=== PATIENT | female | born 1945 | race Hispanic/Latino ===

== ENCOUNTER → 2018-10-10 | Outpatient (CLI) | payer MEDICARE ==
[~2018-10-10] MED LIST: AMLO10TA7 PO; ASPI-1197 PO; ATOR40TA71 PO; CARV25TA PO; CLOP75TA32 PO; LISI10TA7 PO; MELO-108 PO; TRAM50TA4 PO
== END | disposition home or self-care (01) ==
LOC: RAH 10:23
PROVIDERS: ATTEND Family Medicine
DX: S83.101A Unspecified subluxation of right knee, initial encounter (principal); M17.0 Bilateral primary osteoarthritis of knee; I66.9 Occlusion and stenosis of unspecified cerebral artery; M25.762 Osteophyte, left knee; M25.761 Osteophyte, right knee; X58.XXXA Exposure to other specified factors, initial encounter; Y93.89 Activity, other specified; Y92.89 Other specified places as the place of occurrence of the external cause; Y99.8 Other external cause status
CPT/HCPCS: 70544; 73560

== ENCOUNTER → 2019-01-29 | Outpatient (CLI) | payer MEDICARE | END | disposition home or self-care (01) | LOC: RAH 11:07 | PROVIDERS: ATTEND Family Medicine | DX: R42 Dizziness and giddiness (principal); R29.6 Repeated falls | CPT/HCPCS: 70260 ==

== ENCOUNTER 2023-07-21 07:24 | Inpatient (IN) | payer MEDICARE, OTHER ==
[~2023-07-21] VITALS: Ht 160 cm; Wt 83.4 kg
[~2023-07-21 07:24] MED LIST changes: +AMLO-258 PO; -AMLO10TA7 PO; +LISI10TA24 PO; -LISI10TA7 PO
[2023-07-21 07:52] LABS: BASOPHILS # (AUTO) 0.03 K/uL (0.00-0.20); BASOPHILS % (AUTO) 0.5 % (0.0-5.0); EOSINOPHILS # (AUTO) 0.18 K/uL (0.00-0.70); EOSINOPHILS % (AUTO) 3.2 % (0.0-8.0); HEMATOCRIT 42.5 % (36-48); IMMATURE GRANULOCYTE ABSOLUTE 0.01 K/uL (0-1); LYMPHOCYTES # (AUTO) 1.8 K/uL (1.0-4.8); LYMPHOCYTES % (AUTO) 32.6 % (21.0-51.0); MEAN CORPUSCULAR HEMOGLOBIN 29.9 pg (27.0-33.0); MEAN CORPUSCULAR HGB CONC 33.2 g/dL (32.0-36.0); MEAN CORPUSCULAR VOLUME 90.2 fL (79-99); MONOCYTES # (AUTO) 0.5 K/uL (0.1-1.0); NEUTROPHILS # (AUTO) 3.1 K/uL (1.8-7.7); NEUTROPHILS % (AUTO) 54.5 % (40.0-77.0); PLATELET COUNT (AUTO) 186 K/uL (130-400); RED BLOOD CELL COUNT(AUTO) 4.71 MIL/uL (4.00-5.50); RED CELL DISTRIBUTION WIDTH 13.8 % (11.0-15.5); WHITE BLOOD COUNT (AUTO) 5.7 K/uL (4.8-10.8)
[2023-07-21 08:25] LABS: ALBUMIN 3.5 g/dL (3.5-5.0); BILIRUBIN,TOTAL 0.4 mg/dL (0.2-1.0); CREATININE 0.6 mg/dL (0.5-1.5); POTASSIUM 3.9 mmol/L (3.5-5.1); TOTAL PROTEIN, SERUM 7.5 g/dL (6.0-8.3)
[2023-07-21 08:46] LABS: INR < 0.93 (0.85-1.15); PROTHROMBIN TIME 10.3 SEC (9.6-11.6)
[2023-07-21 08:47] LABS: PARTIAL THROMBOPLASTIN TIME 27.9 SEC (26.3-35.5)
[2023-07-21] MEDS ORDERED: IOHEXOL 350 MG/ML 100ML INFUS..BTL IV ONE (08:51)
[2023-07-21] MEDS ORDERED: HYDRALAZINE 20MG/ML VIAL IV ONE (10:00)
[2023-07-21 11:47] LABS: APPEARANCE,URINE CLEAR (CLEAR); BILIRUBIN,URINE NEGATIVE (NEGATIVE); COLOR,URINE COLORLESS (YELLOW); GLUCOSE, URINE (UA) >=1000 mg/dL (NEGATIVE); KETONES,URINE NEGATIVE (NEGATIVE); LEUKOCYTE ESTERASE ,URINE NEGATIVE Leu/uL (NEGATIVE); NITRATE,URINE NEGATIVE (NEGATIVE); OCCULT BLOOD,URINE NEGATIVE (NEGATIVE); PROTEIN,URINE NEGATIVE (NEGATIVE); UROBILINOGEN,URINE 0.2 mg/dL (0.2-1.0)
[2023-07-21 11:48] LABS: ADD UA MICROSCOPIC YES
[2023-07-21 12:01] LABS: RBC,URINE 0-1 /HPF (0-1); SQUAMOUS EPITHELIAL CELL,UR RARE /HPF (0-2); WBC,URINE 0-1 /HPF (0-1)
[2023-07-21] MEDS ORDERED: ASPIRIN 81MG CHEW TAB PO ONE (16:30)
[2023-07-21] MEDS: INSULIN HUMULIN R 100 UNIT/ML 3ML SQ SCH ×2 (16:30→20:28)
[2023-07-21] MEDS ORDERED: ONDANSETRON 4MG INJ IVP PRN (16:30)
[2023-07-21 16:46] LABS: HEMOGLOBIN A1C 6.2 % (4.0-6.0)
[2023-07-21] MEDS: CLOPIDOGREL 75MG TAB PO SCH (16:57)
[2023-07-21 16:58] LABS: THYROID STIMULATING HORMONE 2.62 uIU/mL (0.36-3.74)
[2023-07-21] MEDS ORDERED: 0.9%NACL 1000ML 1,000 ML IV SCH (17:00)
[2023-07-21] MEDS ORDERED: PIOG30TA70 PO (17:24)
[2023-07-21] MEDS ORDERED: ROSU20TA73 PO (17:24)
[2023-07-21] MEDS ORDERED: METF-444 PO (17:24)
[2023-07-21] MEDS ORDERED: LISI40TA9 PO (17:24)
[2023-07-21] MEDS ORDERED: DAPA10TA PO (17:24)
[2023-07-21] MEDS ORDERED: CHOL500050 PO (17:24)
[2023-07-21 18:27] VITALS: BP 140/61; PULSE 73; RESP 16
[2023-07-21 18:33] VITALS: O2SAT 97
[2023-07-21 19:44] VITALS: BP 174/90; PULSE 69; RESP 21
[2023-07-21 20:30] VITALS: O2SAT 95
[2023-07-21] MEDS: ATORVASTATIN 40 MG TABLET PO SCH (20:52)
[2023-07-21] MEDS ORDERED: DEXTROSE 50%-WATER 50 ML DISP.SYRIN IV PRN (21:00)
[2023-07-21] MEDS ORDERED: GLUCAGON 1MG KIT 1 MG ML IM PRN (21:00)
[2023-07-21] MEDS ORDERED: LABETALOL 20MG VIAL IV PRN (22:00)
[2023-07-21 23:20] VITALS: BP 132/57; PULSE 83; RESP 20
[2023-07-22] VITALS (8 sets, daily range): BP systolic 137–173; BP diastolic 58–74; PULSE 60–83; RESP 18–22; O2SAT 96–100
[2023-07-22] MEDS: INSULIN HUMULIN R 100 UNIT/ML 3ML SQ SCH ×4 (06:14→20:34)
[2023-07-22 06:20] LABS: BASOPHILS # (AUTO) 0.02 K/uL (0.00-0.20); BASOPHILS % (AUTO) 0.4 % (0.0-5.0); EOSINOPHILS # (AUTO) 0.14 K/uL (0.00-0.70); EOSINOPHILS % (AUTO) 2.5 % (0.0-8.0); HEMATOCRIT 39.9 % (36-48); IMMATURE GRANULOCYTE ABSOLUTE 0.02 K/uL (0-1); LYMPHOCYTES # (AUTO) 1.5 K/uL (1.0-4.8); LYMPHOCYTES % (AUTO) 26.4 % (21.0-51.0); MEAN CORPUSCULAR HGB CONC 32.8 g/dL (32.0-36.0); MEAN CORPUSCULAR VOLUME 88.3 fL (79-99); MONOCYTES # (AUTO) 0.5 K/uL (0.1-1.0); NEUTROPHILS # (AUTO) 3.4 K/uL (1.8-7.7); NEUTROPHILS % (AUTO) 61.3 % (40.0-77.0); PLATELET COUNT (AUTO) 183 K/uL (130-400); RED BLOOD CELL COUNT(AUTO) 4.52 MIL/uL (4.00-5.50); RED CELL DISTRIBUTION WIDTH 14.2 % (11.0-15.5); WHITE BLOOD COUNT (AUTO) 5.5 K/uL (4.8-10.8)
[2023-07-22 06:41] LABS: ALBUMIN 3.2 g/dL (3.5-5.0); BILIRUBIN,TOTAL 0.5 mg/dL (0.2-1.0); CREATININE 0.7 mg/dL (0.5-1.5); MAGNESIUM 1.9 mg/dL (1.80-2.40); POTASSIUM 3.9 mmol/L (3.5-5.1); TOTAL PROTEIN, SERUM 6.7 g/dL (6.0-8.3)
[2023-07-22] MEDS: CHOLECALCIFEROL 1250 MCG PO SCH (09:00)
[2023-07-22] MEDS: ASPIRIN 81 MG EC TAB PO SCH (09:43)
[2023-07-22] MEDS: LISINOPRIL 40 MG TABLET PO SCH (09:43)
[2023-07-22] MEDS: CLOPIDOGREL 75MG TAB PO SCH (17:31)
[2023-07-22] MEDS: ATORVASTATIN 40 MG TABLET PO SCH (20:16)
[2023-07-22] MEDS: ACETAMINOPHEN 500 MG TABLET PO PRN (20:36)
[2023-07-23] VITALS (8 sets, daily range): BP systolic 141–178; BP diastolic 55–99; PULSE 57–94; RESP 18–20; TEMP 98.2; O2SAT 100
[2023-07-23] MEDS: INSULIN HUMULIN R 100 UNIT/ML 3ML SQ SCH ×4 (05:46→21:00)
[2023-07-23] MEDS: ACETAMINOPHEN 500 MG TABLET PO PRN ×2 (08:41→18:00)
[2023-07-23] MEDS: LISINOPRIL 40 MG TABLET PO SCH (08:41)
[2023-07-23] MEDS: ASPIRIN 81 MG EC TAB PO SCH (08:41)
[2023-07-23] MEDS: CHOLECALCIFEROL 1250 MCG PO SCH (09:00)
[2023-07-23] MEDS ORDERED: HYDRALAZINE 20MG/ML VIAL IV PRN (10:00)
[2023-07-23] MEDS: LIDOCAINE 4% ADH..PATCH TP SCH (18:00)
[2023-07-23] MEDS: CLOPIDOGREL 75MG TAB PO SCH (18:09)
[2023-07-23] MEDS: ATORVASTATIN 40 MG TABLET PO SCH (20:33)
[2023-07-24] VITALS (8 sets, daily range): BP systolic 98–160; BP diastolic 50–97; PULSE 74–102; RESP 18–20; O2SAT 98–100
[2023-07-24 05:40] LABS: HEMATOCRIT 39.3 % (36-48); MEAN CORPUSCULAR HEMOGLOBIN 29.5 pg (27.0-33.0); MEAN CORPUSCULAR HGB CONC 33.6 g/dL (32.0-36.0); MEAN CORPUSCULAR VOLUME 87.9 fL (79-99); RED BLOOD CELL COUNT(AUTO) 4.47 MIL/uL (4.00-5.50); RED CELL DISTRIBUTION WIDTH 13.7 % (11.0-15.5); WHITE BLOOD COUNT (AUTO) 7.6 K/uL (4.8-10.8)
[2023-07-24 06:18] LABS: ALBUMIN 3.2 g/dL (3.5-5.0); BILIRUBIN,TOTAL 0.6 mg/dL (0.2-1.0); CREATININE 0.8 mg/dL (0.5-1.5); POTASSIUM 3.7 mmol/L (3.5-5.1); TOTAL PROTEIN, SERUM 7.1 g/dL (6.0-8.3)
[2023-07-24] MEDS: INSULIN HUMULIN R 100 UNIT/ML 3ML SQ SCH ×4 (07:30→20:55)
[2023-07-24] MEDS: LISINOPRIL 40 MG TABLET PO SCH (08:59)
[2023-07-24] MEDS ORDERED: AMLODIPINE 2.5 MG TAB PO SCH (09:00)
[2023-07-24] MEDS: ASPIRIN 81 MG EC TAB PO SCH (09:00)
[2023-07-24] MEDS: CHOLECALCIFEROL 1250 MCG PO SCH (09:00)
[2023-07-24] MEDS: LIDOCAINE 4% ADH..PATCH TP SCH (16:30)
[2023-07-24] MEDS: CLOPIDOGREL 75MG TAB PO SCH (16:30)
[2023-07-24] MEDS: ATORVASTATIN 40 MG TABLET PO SCH (21:02)
[2023-07-24] MEDS: CARVEDILOL 12.5 MG TABLET PO SCH (21:03)
[2023-07-24] MEDS: ACETAMINOPHEN 500 MG TABLET PO PRN (21:08)
[2023-07-25 04:09] VITALS: BP 121/65; PULSE 55; RESP 18
[2023-07-25 04:29] LABS: HEMATOCRIT 38.8 % (36-48); MEAN CORPUSCULAR HEMOGLOBIN 29.3 pg (27.0-33.0); MEAN CORPUSCULAR VOLUME 88.8 fL (79-99); RED BLOOD CELL COUNT(AUTO) 4.37 MIL/uL (4.00-5.50); WHITE BLOOD COUNT (AUTO) 6.7 K/uL (4.8-10.8)
[2023-07-25 04:46] LABS: ALBUMIN 2.9 g/dL (3.5-5.0); BILIRUBIN,TOTAL 0.6 mg/dL (0.2-1.0); CREATININE 0.9 mg/dL (0.5-1.5); POTASSIUM 3.8 mmol/L (3.5-5.1); TOTAL PROTEIN, SERUM 6.9 g/dL (6.0-8.3)
[2023-07-25] MEDS: INSULIN HUMULIN R 100 UNIT/ML 3ML SQ SCH ×2 (06:28→11:25)
[2023-07-25] MEDS ORDERED: LACTULOSE 20 GM/30 ML UDCUP PO PRN (06:30)
[2023-07-25] MEDS ORDERED: KCL 20 MEQ ERTAB PO PRN (06:30)
[2023-07-25] MEDS ORDERED: POTASSIUM CHLORIDE 10% ELIXIR 20 MEQ/15 ML UDCUP PO PRN (06:30)
[2023-07-25 08:00] VITALS: BP 126/64; PULSE 68; RESP 16; O2SAT 98
[2023-07-25] MEDS: CARVEDILOL 12.5 MG TABLET PO SCH (08:10)
[2023-07-25] MEDS: LISINOPRIL 40 MG TABLET PO SCH (08:11)
[2023-07-25] MEDS: ASPIRIN 81 MG EC TAB PO SCH (08:11)
[2023-07-25] MEDS: CHOLECALCIFEROL 1250 MCG PO SCH (08:59)
[2023-07-25] MEDS ORDERED: AMLODIPINE 5 MG TAB PO SCH (09:00)
[2023-07-25] MEDS ORDERED: POLYETHYLENE GLYCOL 3350 17 GM POWD.PACK PO ONE (10:30)
[2023-07-25 11:45] VITALS: BP 112/48; PULSE 53; RESP 18
[2023-07-26] MEDS ORDERED: POLYETHYLENE GLYCOL 3350 17 GM POWD.PACK PO SCH (09:00)
== END 2023-07-25 15:55 | DRG 65 ==
LOC: EDH 07:24 → EDHIP 16:19 → 2DH 18:09
PROVIDERS: ADMIT Internal Medicine; ATTEND Internal Medicine
DX: I63.81 Other cerebral infarction due to occlusion or stenosis of small artery (principal); I69.354 Hemiplegia and hemiparesis following cerebral infarction affecting left non-dominant side; R47.1 Dysarthria and anarthria; E11.9 Type 2 diabetes mellitus without complications; I10 Essential (primary) hypertension; E66.9 Obesity, unspecified; E78.00 Pure hypercholesterolemia, unspecified; I16.0 Hypertensive urgency; R13.10 Dysphagia, unspecified; R29.810 Facial weakness; Z79.82 Long term (current) use of aspirin; Z79.899 Other long term (current) drug therapy; Z68.32 Body mass index [BMI] 32.0-32.9, adult; Z79.84 Long term (current) use of oral hypoglycemic drugs
CPT/HCPCS: 36415; 70450; 70496; 70498; 70551; 74230; 80053; 80061; 81001; 82306; 82948; 83036; 83735; 84443; 84484; 85025; 85027; 85610; 85730; 92522; 92610; 92611; 93005; 93306; G0378; J0360; J1815; Q9967